=== PATIENT | female | born 1955 ===

== ENCOUNTER 2017-07-06 06:36 | Day surgery (SDC) | payer OTHER ==
[~2017-07-06 06:36] MED LIST: ARIMIDEX PO; SYNTHROID50 MCG PO
== END 2017-07-06 18:30 | disposition home or self-care (01) ==
LOC: CIR.AMB 06:36
DX: S63.392A Traumatic rupture of other ligament of left wrist, initial encounter (principal)

== ENCOUNTER 2020-06-27 12:56 | Outpatient (CLI) | payer OTHER | END 2020-06-27 13:06 | disposition home or self-care (01) | LOC: SONOGRAMA 12:56 → MAMO-SONO 13:15 | PROVIDERS: ATTEND Internal Medicine Geriatric Medicine | DX: R80.8 Other proteinuria (principal); N19 Unspecified kidney failure ==